=== PATIENT | female | born 1955 | race Two or more races ===

== ENCOUNTER 2019-02-18 14:56 | Emergency (ER) | payer OTHER ==
[~2019-02-18] VITALS: Ht 160 cm; Wt 61.2 kg
== END 2019-02-18 17:53 | disposition home or self-care (01) ==
LOC: ER 14:56
DX: S80.01XA Contusion of right knee, initial encounter (principal); W18.39XA Other fall on same level, initial encounter; Y93.89 Activity, other specified; Y92.098 Other place in other non-institutional residence as the place of occurrence of the external cause; Y99.8 Other external cause status